=== PATIENT | male | born 1990 | race African-American/Black ===

== ENCOUNTER 2016-08-28 13:28 | Emergency (ER) | payer MEDICARE, OTHER ==
[2016-08-28] MEDS ORDERED: ACETAMINOPHEN 325 MG TABLET PO ONE (14:23)
--- NOTE | 2016-08-28 14:23 | ER Document Report ---
ED Medical Screen (RME) - General Chief Complaint: Tremor Stated Complaint: SHAKING Time Seen by Provider: 08/28/16 14:22 Mode of Arrival: Ambulatory Information source: Patient Notes: 25-year-old man with a history of autism seizures who is brought in by his father from daycare because of "shaking". The patient's father states that the patient does not appear to be acting at his baseline. Patient's skin is warm. TRAVEL OUTSIDE OF THE [place] IN LAST 30 DAYS: No - Related Data Allergies/Adverse Reactions: red dye Allergy (Verified 11/06/15 11:26) popcorn Allergy (Uncoded 11/06/15 11:26) Past Medical History Renal/ Medical History: Denies: Hx Peritoneal Dialysis - Immunizations Hx Diphtheria, Pertussis, Tetanus Vaccination: - unk Physical Exam - Vital signs Vitals: Pulse Resp BP Pulse Ox 160 H 24 H 124/88 H 98 08/28/16 13:34 08/28/16 13:34 08/28/16 13:34 08/28/16 13:34 Course - Vital Signs Vital signs: Temp Pulse Resp BP Pulse Ox 160 H 24 H 124/88 H 98 08/28/16 13:34 08/28/16 13:34 08/28/16 13:34 08/28/16 13:34
[2016-08-28] MEDS ORDERED: NORMAL SALINE 1000 ML 1,000 ML IV ONE (15:18)
--- NOTE | 2016-08-28 15:24 | RADIOLOGY REPORT (SQ) ---
EXAM DESCRIPTION: CHEST SINGLE VIEW COMPLETED DATE/TIME: 08/28/2016 2:54 pm REASON FOR STUDY: fever COMPARISON: 11/06/2015 NUMBER OF VIEWS: One view. TECHNIQUE: Single frontal radiographic view of the chest acquired. LIMITATIONS: None. FINDINGS: LUNGS AND PLEURA: The lungs appear clear except for linear atelectatic marking at the left lung base. MEDIASTINUM AND HILAR STRUCTURES: No masses. Contour normal. HEART AND VASCULAR STRUCTURES: Heart normal in size. Normal vasculature. BONES: No acute findings. HARDWARE: None in the chest. OTHER: No other significant finding. IMPRESSION: The lungs are clear except for a linear atelectatic marking at the left lung base. TECHNICAL DOCUMENTATION: JOB ID: [id number] [employer]- All Rights Reserved
[2016-08-28] MEDS ORDERED: LORAZEPAM 0.5 MG TABLET PO ONE (15:40)
--- NOTE | 2016-08-28 15:40 | ER Document Report ---
ED General - General Mode of Arrival: Wheelchair Information source: Parent TRAVEL OUTSIDE OF THE [place] IN LAST 30 DAYS: No - HPI Onset: This afternoon - Refer to HPI notes <VANNESA FREDERICK - Last Filed: 08/28/16 16:56> <MEGANJA ANN - Last Filed: 08/28/16 21:40> - General Chief Complaint: Tremor Stated Complaint: SHAKING Time Seen by Provider: 08/28/16 14:22 Notes: Patient is a 25-year old male presenting to the emergency department with a complaint of tremor/shaking. Patient has a history of autism, is non-verbal, and had his first seizure in October of 2015. Patient has not had any further seizure activity and father states that the patient's shaking today did not appear like a seizure. Patient was at camp today where they were tie-dying t- shirts. Patient had the shaking/tremor start after lunch and the patient's father was called to bring the patient home. Patient's father states he is not acting like his baseline and he states that the patient sometimes makes a scrunched up face with his eyes squinting; the father does not know if the patient is in pain. Patient has not had any changes or new medicines recently. Patient has not had any recent illness. Patient is able to take medicines PO and does not do well with shots or IVs. (VANNESA FREDERICK) - Related Data Allergies/Adverse Reactions: red dye Allergy (Verified 11/06/15 11:26) popcorn Allergy (Uncoded 11/06/15 11:26) Past Medical History - General Information source: Patient - Social History Smoking Status: Never Smoker Cigarette use (# per day): No Chew tobacco use (# tins/day): No Smoking Education Provided: No Frequency of alcohol use: None Drug Abuse: None Lives with: Parents Family History: None Patient has suicidal ideation: No Patient has homicidal ideation: No Neurological Medical History: Reports: Hx Seizures - 1st seizure in 10/2015 Psychiatric Medical History: Reports: Other - autism, non-verbal Surgical Hx: Negative - Immunizations Immunizations up to date: Yes Hx Diphtheria, Pertussis, Tetanus Vaccination: - unk <VANNESA FREDERICK - Last Filed: 08/28/16 16:56> Review of Systems - Review of Systems Constitutional: No symptoms reported EENT: No symptoms reported Cardiovascular: No symptoms reported Respiratory: No symptoms reported Gastrointestinal: No symptoms reported Genitourinary: No symptoms reported Male Genitourinary: No symptoms reported Musculoskeletal: No symptoms reported Skin: No symptoms reported Hematologic/Lymphatic: No symptoms reported Neurological/Psychological: See HPI, Tremor -: Yes All other systems reviewed and negative <VANNESA FREDERICK - Last Filed: 08/28/16 16:56> Physical Exam - Vital signs Interpretation: Tachycardic <VANNESA FREDERICK - Last Filed: 08/28/16 16:56> <JA GUZMAN - Last Filed: 08/28/16 21:40> - Vital signs Vitals: Pulse Resp BP Pulse Ox 160 H 24 H 124/88 H 98 08/28/16 13:34 08/28/16 13:34 08/28/16 13:34 08/28/16 13:34 - Notes Notes: GENERAL: Alert, autistic behavior, non-verbal. No acute distress. HEAD: Normocephalic, atraumatic. EYES: Pupils equal, round, and reactive to light. Extraocular movements intact. ENT: Dry mucus membranes, tongue midline. NECK: Full range of motion. Supple. Trachea midline. LUNGS: Clear to auscultation bilaterally, no wheezes, rales, or rhonchi. No respiratory distress. HEART: Tachycardia. Regular rhythm. No murmurs, gallops, or rubs. ABDOMEN: Soft, non-tender. Non-distended. Bowel sounds present in all 4 quadrants. EXTREMITIES: Moves all 4 extremities spontaneously. No edema. NEUROLOGICAL: No neurological deficits, non-verbal. PSYCH: Anxious SKIN: Warm, dry, normal turgor. No rashes or lesions noted. (VANNESA FREDERICK) Course <VANNESA FREDERICK - Last Filed: 08/28/16 16:56> - Diagnostic Test Radiology reviewed: Reports reviewed <JA GUZMAN - Last Filed: 08/28/16 21:40> - Re-evaluation Re-evalutation: 08/28/16 16:19 Patient has had no tremors or seizure-like activity here. Have tried to sedate patient for blood work. Would like to try something else to sedate him. Family states that he appears better at this time and they need to get home. Vitals are stable. Patient is encouraged to drink fluids at home. Return if any further concerns. Stable for discharge. (JA GUZMAN) - Vital Signs Vital signs: Temp Pulse Resp BP Pulse Ox 120 H 20 110/68 96 08/28/16 16:35 08/28/16 16:35 08/28/16 16:35 08/28/16 16:35 Discharge <VANNESA FREDERICK - Last Filed: 08/28/16 16:56> <JA GUZMAN - Last Filed: 08/28/16 21:40> - Discharge Clinical Impression: Tremor, Dehydration Condition: Stable Disposition: HOME, SELF-CARE Instructions: Dehydration ([facility]) Additional Instructions: Please make sure you are drinking plenty of fluids. Referrals: RITA TEMPLE MD [Primary Care Provider] - Follow up tomorrow Scribe Attestation: 08/28/16 21:40 I personally performed the services described in the documentation, reviewed and edited the documentation which was dictated to the scribe in my presence, and it accurately records my words and actions. (JA GUZMAN) Scribe Documentation - Scribe Written by Nazario:: Nazario Shepherd, 08/28/2016 16:55 acting as scribe for :: Megan <VANNESA FREDERICK - Last Filed: 08/28/16 16:56>
[2016-08-28 16:36] VITALS: BP 110/68
== END 2016-08-28 16:36 | disposition home or self-care (01) ==
LOC: ER 13:28
DX: E86.0 Dehydration (principal); R25.1 Tremor, unspecified; F84.0 Autistic disorder
CPT/HCPCS: 99284; 71010; A9270 ×2

== ENCOUNTER → 2018-04-15 | Outpatient (CLI) | payer MEDICARE, MEDICAID ==
[2018-04-15 09:26] LABS: ABSOLUTE EOSINOPHILS # (AUTO) 0.1 10^3/uL (0.0-0.6); ABSOLUTE LYMPHOCYTES (AUTO) 2.2 10^3/uL (0.5-4.7); ABSOLUTE MONOCYTES (AUTO) 0.4 10^3/uL (0.1-1.4); ABSOLUTE NEUT (AUTO) 4.2 10^3/uL (1.7-8.2); BASOPHILS % (AUTO) 0.5 % (0-2); EOSINOPHILS % (AUTO) 1.1 % (0-6); HEMATOCRIT 40.5 % (37.9-51.0); HEMOGLOBIN 13.4 g/dL (13.5-17.0); LYMPHOCYTES % (AUTO) 32.1 % (13-45); MEAN CORPUSCULAR HEMOGLOBIN 28.5 pg (27.0-33.4); MEAN CORPUSCULAR VOLUME 86 fl (80-97); MONOCYTES % (AUTO) 5.2 % (3-13); PLATELET COUNT 304 10^3/uL (150-450); RED BLOOD COUNT 4.69 10^6/uL (4.35-5.55); RED CELL DISTRIBUTION WIDTH 13.2 % (11.5-14.0); SEGMENTED NEUTROPHILS % (AUTO) 61.1 % (42-78); TOTAL CELLS COUNTED % (AUTO) 100 %; WHITE BLOOD COUNT 6.9 10^3/uL (4.0-10.5)
[2018-04-15 09:50] LABS: ALANINE AMINOTRANSFERASE 13 U/L (21-72); ALBUMIN 4.8 g/dL (3.5-5.0); ALKALINE PHOSPHATASE 80 U/L (38-126); ANION GAP 13 (5-19); ASPARTATE AMINO TRANSFERASE 23 U/L (17-59); BILIRUBIN,DIRECT 0.3 mg/dL (0.0-0.4); BILIRUBIN,TOTAL 0.3 mg/dL (0.2-1.3); BLOOD UREA NITROGEN 13 mg/dL (7-20); CALCIUM 9.8 mg/dL (8.4-10.2); CARBON DIOXIDE 28 mmol/L (22-30); CHLORIDE 101 mmol/L (98-107); CHOLESTEROL 144.25 mg/dL (0-200); GLUCOSE 94 mg/dL (75-110); POTASSIUM 4.6 mmol/L (3.6-5.0); SODIUM 141.9 mmol/L (137-145); TOTAL PROTEIN 7.9 g/dL (6.3-8.2); TRIGLYCERIDES 145 mg/dL (<150)
[2018-04-15 10:01] LABS: DIRECT LDL 81 mg/dL (<100)
== END ==
LOC: OD 08:46
PROVIDERS: ATTEND Family Medicine
DX: G40.909 Epilepsy, unspecified, not intractable, without status epilepticus (principal)
CPT/HCPCS: 36415; 80053; 80061; 84443; 85025

== ENCOUNTER → 2019-04-05 | Outpatient (CLI) | payer MEDICARE, MEDICAID ==
[2019-04-05 08:47] LABS: ABSOLUTE BASOPHILS # (AUTO) 0.1 10^3/uL (0.0-0.2); ABSOLUTE LYMPHOCYTES (AUTO) 1.7 10^3/uL (0.5-4.7); ABSOLUTE MONOCYTES (AUTO) 0.5 10^3/uL (0.1-1.4); ABSOLUTE NEUT (AUTO) 7.2 10^3/uL (1.7-8.2); BASOPHILS % (AUTO) 0.6 % (0-2); EOSINOPHILS % (AUTO) 0.5 % (0-6); HEMATOCRIT 41.4 % (37.9-51.0); HEMOGLOBIN 14.1 g/dL (13.5-17.0); LYMPHOCYTES % (AUTO) 17.7 % (13-45); MEAN CORPUSCULAR HEMOGLOBIN 28.6 pg (27.0-33.4); MEAN CORPUSCULAR HGB CONC 34.1 g/dL (32.0-36.0); MEAN CORPUSCULAR VOLUME 84 fl (80-97); MONOCYTES % (AUTO) 4.9 % (3-13); PLATELET COUNT 257 10^3/uL (150-450); RED BLOOD COUNT 4.94 10^6/uL (4.35-5.55); SEGMENTED NEUTROPHILS % (AUTO) 76.3 % (42-78); TOTAL CELLS COUNTED % (AUTO) 100 %; WHITE BLOOD COUNT 9.4 10^3/uL (4.0-10.5)
[2019-04-05 09:08] LABS: ALBUMIN 4.4 g/dL (3.5-5.0); ALKALINE PHOSPHATASE 98 U/L (38-126); ANION GAP 12 (5-19); ASPARTATE AMINO TRANSFERASE 38 U/L (17-59); BILIRUBIN,DIRECT 0.2 mg/dL (0.0-0.4); BILIRUBIN,TOTAL 0.6 mg/dL (0.2-1.3); BLOOD UREA NITROGEN 16 mg/dL (7-20); CALCIUM 9.5 mg/dL (8.4-10.2); CARBON DIOXIDE 22 mmol/L (22-30); CHLORIDE 105 mmol/L (98-107); GLUCOSE 104 mg/dL (75-110); POTASSIUM 4.9 mmol/L (3.6-5.0); TOTAL PROTEIN 7.6 g/dL (6.3-8.2)
== END ==
LOC: OD 08:04
PROVIDERS: ATTEND Family Medicine
DX: Z51.81 Encounter for therapeutic drug level monitoring (principal); Z79.899 Other long term (current) drug therapy
CPT/HCPCS: 36415; 80053; 84443; 85025